=== PATIENT | female | born 1955 | race Caucasian/White ===

== ENCOUNTER 2017-01-09 17:28 | Emergency (ER) | payer OTHER ==
[2017-01-09 17:41] VITALS: BMI 25.2
[2017-01-09] MEDS ORDERED: CATAPRES TAB 0.2 MG PO ONE (19:14)
--- NOTE | 2017-01-09 19:33 | DR.GENAD ---
HPI - PCP Primary Care Physician: LUISA MOORE - Complaint/Symptoms Chief Complaint Doctors Comments: Patient complains of her blood pressure going up all day and a headache since last night. States she had a headache in the frontal area last night and thought it was her sinus and she took and Glenis D and her headache persisted and she talked with her mother and she told her to take her blood pressure again and it was 145/94 at eleven am and 148/97 at 1 pm and just before coming to the emergency room i was 146/104. She has been having SOB but denies chest pain. She has been having nasal congestion. states she has a strong family history of heart disease and her brother at 60 for a massive heart attack. She denies tobacco or alcohol usage. States she just had a check up August 2016 and her blood pressure was 120/70 and it usually run in that range. She denies blurred vision, nausea, vomiting or recent trauma or problems with her balance. Chief Complaint:: PT STATES HER BP HAS BEEN GOING UP ALL DAY, BUT SHE DOES NOT NORMALLY TAKE ANYTHING FOR HER BP. PT ALSO C/O A HEADACHE. - Nurses notes reviewed Nurses Notes Review: Yes - Source History Provided: Patient - Mode of Arrival Mode of Arrival: Ambulatory - Timing Onset of Chief Complaint: 01/09/17 Came on: Suddenly - Duration Duration: Constant How lon Duration: Days - Location Location: frontal headache - Severity Severity: Moderate - Modifying Factors Worsens:: nothing Improves:: nothing PMH - PMH Past Medical History: Yes Past Medical History: Depression, GERD Past Medical History Comment: FIBROMYALGIA Past Surgical History: Yes Surgical History: Appendectomy, Hysterectomy, Tonsillectomy - Family History History of Family Medical Conditions: Yes Family Medical History: Diabetes Mellitus, Cancer, [place], Hypertension - Social History Alcohol Use: None Do you use any recreational Drugs:: No Lives With: Family Lives Where: Home - infectious screening In the last 2 months have you had wt loss of >10#?: NO Have you had fever, night sweats or hemotysis?: No Have you traveled outside the country in the last 6 months?: No Isolation: Standard ROS - Review of Systems Constitutional: No Symptoms Reported. negative: See HPI, Chills, Diaphoresis, Fever, Malaise, Weakness, Irritable, Fatigue, Loss of Appetite, Other Eyes: No Symptoms Reported. negative: See HPI, Eye Pain, Blurred Vision, Tearing, Discharge, Photophobia, Diplopia, Other ENTM: No Symptoms Reported, Nose Discharge, Nose Congestion. negative: See HPI , Ear Pain, Ear Discharge, Pulling on Ears, Hearing Loss, Nose Pain, Epistaxis, Mouth Pain, Mouth Swelling, Loose Teeth, Drooling, Throat Pain, Throat Swelling , Ear Foreign Body Respiratoy: No Symptoms Reported. negative: See HPI, Productive Cough, Non- Productive Cough, Moist Cough, Dry Cough, Hacking Cough, Barking Cough, Brassy Cough, Orthopnea, Short of Breath, Stridor, Wheezing, Hemoptysis, Other Cardiovascular: No Symptoms Reported. negative: See HPI, Chest Pain, Edema, Palpitations, Syncope, Cyanosis, Skin Mottling, Other Gastrointestinal/Abdominal: No Symptoms Reported. negative: See HPI, Abdominal Pain, Constipation, Diarrhea, Nausea, Vomiting, Food Intolerance, Other Genitourinary: No Symptoms Reported Neurological: No Symptoms Reported, Anxiety, Headache. negative: See HPI, Depressed, Emotional Problems, Numbness, Paresthesia, Pre-existing Deficit, Seizure, Tingling, Tremors, Weakness, Dizziness, Problems Walking, Speech Problem, Other Musculoskeletal: No Symptoms Reported Integumentary: No Symptoms Reported Hematologic/Lymphatic: No Symptoms Reported Endocrine: No Symptoms Reported Psychiatric: Anxiety PE - Vital Signs Vitals: Temperature 97.6 F Pulse Rate [Left Brachial] 86 Pulse Rate 84 Respiratory Rate 20 Blood Pressure [Right Arm] 125/73 Blood Pressure [Left Arm] 186/95 Blood Pressure 160/103 O2 Sat by Pulse Oximetry 94 - General Limitations: No Limitations General Appearance: Alert, In No Apparent Distress - Head Head Exam: Normal Inspection, Atraumatic, Normocephalic - Eyes Eye exam: Normal Appearance, PERRL, EOMI. negative: Scleral Icterus, Conjunctival Injection, Nystagmus, Miosis, Mydrasis, Periorbital Swelling, Periorbital Tenderness, Other - ENT ENT Exam: Normal Exam, Normal Oropharynx, Normal External Ear Exam, TM's Normal Bilaterally External Ear Exam: Normal External Inspection TM/Canal Exam: Bilateral Normal Nose Exam: Normal Nose Exam (nasal congestion) Mouth Exam: Normal Inspection. negative: Drooling, Trismus, Lip Swelling, Tongue Elevation, Tongue Swelling, Laceration, Other Throat Exam: Normal Inspection. negative: Tonsillar Erythema, Tonsillomegaly, Tonsillar Exudate, R Peritonsillar Mass, L Peritonsillar Mass, Muffled Voice, Other - Neck Neck Exam: Normal Inspection, Full ROM, Trachea Midline. negative: Tenderness, Meningismus, Lymphadenopathy, Thyromegaly, Other - Chest Chest Inspection: Normal Inspection, Symmetric Chest Wall Rise - Respiratory Respiratory Exam: Normal Lung Sounds Bilat Respiratory Exam: Bilateral Clear to Auscultation - Cardiovascular Cardiovascular Exam: Regular Rate, Normal Rhythm, Normal Heart Sounds - Abdominal Exam Abdominal Exam: Normal Inspection, Normal Bowel Sounds, Soft Abdominal Tenderness: negative: RUQ, RLQ, LUQ, LLQ, Epigastrium, Suprapubic, Diffuse, Mild, Moderate, Severe, Other - Extremities Extremities Exam: Normal Inspection, Full ROM, Normal Capillary Refill. negative: Tenderness, Edema, Joint Swelling, Calf Tenderness, Other - Back Back Exam: Normal Inspection, Full ROM. negative: Tenderness, (R) CVA Tenderness, (L) CVA Tenderness, Muscle Spasm, Paraspinal Tenderness, Vertebral Tenderness, Rashes, (R) Sciatic Notch Tenderness, (L) Sciatic Notch Tendern, (R ) Straight Leg Raise, (L) Straight Leg Raise, Other - Neurologic Neurological Exam: Alert, Oriented X3, CN II-XII Intact, Normal Gait, Reflexes Normal - Psychiatric Psychiatric Exam: Normal Affect, Normal Mood - Skin Skin Exam: Warm, Dry, Intact, Normal Color ROR - Labs Reviewed Laboratory Results Reviewed?: Yes (all labs and x-ray results reviewed and discussed with patient and family) Result Diagrams: 01/09/17 19:28 01/09/17 19:28 Laboratory: WBC 7.8 X10^3/uL (3.6-10.0) 01/09/17 19:28 RBC 4.75 X10^6/uL (3.5-5.4) 01/09/17 19:28 Hgb 13.5 g/dL (12.0-16.0) 01/09/17 19:28 Hct 39.8 % (36.0-47.0) 01/09/17 19:28 MCV 83.7 fL (80.0-100.0) 01/09/17 19:28 MCH 28.3 pg (27.0-34.0) 01/09/17 19:28 MCHC 33.9 g/dL (33.0-35.0) 01/09/17 19: RDW 14.3 % (11.6-16.5) 01/09/17 19:28 Plt Count 303 X10^3/uL (150.0-450.0) 01/09/17 19:28 MPV 7.6 fL (7.4-11.0) 01/09/17 19: Neut % 59.9 % (42.0-75.0) 01/09/17 19: Lymph % 29.4 % (21.0-51.0) 01/09/17 19:28 [place] % 7.4 % (0.0-13.0) 01/09/17 19: Eos % 2.3 % (0.9-2.9) 01/09/17 19:28 Baso % 1.0 % (0.2-1.0) 01/09/17 19:28 Neut # 4.6 x10^3/uL (2.2-4.8) 01/09/17 19:28 Lymph # 2.3 X10^3/uL (1.3-2.9) 01/09/17 19:28 [place] # 0.6 x10^3/uL (0.3-0.8) 01/09/17 19:28 Eos # 0.2 x10^3/uL (0.0-0.2) 01/09/17 19:28 Baso # 0.1 X10^3/uL (0.0-0.1) 01/09/17 19:28 Absolute Nucleated RBC 0.0 /100WBC 01/09/17 19:28 INR Target Range - 01/09/17 19:28 INR 0.96 (0.8-1.3) 01/09/17 19:28 PTT 27.5 SECONDS (22.9-36.5) 01/09/17 19:28 PTT Comment - 01/09/17 19:28 Sodium 141 mmol/L (136-145) 01/09/17 19:28 Corrected Sodium TNP 01/09/17 19:28 Potassium 4.0 mmol/L (3.5-5.1) 01/09/17 19:28 Chloride 105 mmol/L (98-107) 10/14/17 19:28 Carbon Dioxide 28.6 mmol/L (21-32) 01/09/17 19:28 BUN 8 mg/dL (7-18) 01/09/17 19:28 Creatinine 0.87 mg/dL (0.55-1.02) 01/09/17 19:28 Est GFR (MDRD) Af Amer > 60 (>60) 01/09/17 19:28 Est GFR (MDRD) Non-Af > 60 (>60) 01/09/17 19:28 Glucose 83 mg/dL (65-99) 01/09/17 19:28 Calcium 9.2 mg/dL (8.5-10.1) 01/09/17 19:28 Corrected Calcium TNP 01/09/17 19:28 Magnesium 2.0 mg/dL (1.7-2.9) 01/09/17 19:28 Total Bilirubin 0.20 mg/dL (0.2-1.0) 01/09/17 19:28 AST 17 Units/L (15-37) 01/09/17 19:28 ALT 27 Units/L (12-78) 01/09/17 19:28 Alkaline Phosphatase 57 Units/L (46-116) 01/09/17 19:28 Creatine Kinase 98 Units/L (26-192) 01/09/17 19:28 CK-MB (CK-2) < 1.0 ng/mL (0-4.0) 01/09/17 19:28 CK/CKMB % Calc 1.0 % (<4) 01/09/17 19:28 Troponin I < 0.02 ng/mL (0-1.5) 01/09/17 19:28 Total Protein 7.9 g/dL (6.4-8.2) 01/09/17 19:28 Albumin 4.0 g/dL (3.4-5.0) 01/09/17 19:28 Globulin 3.9 g/dL (2.5-4.5) 01/09/17 19:28 Albumin/Globulin Ratio 1.0 Ratio (1.1-2.1) L 01/09/17 19:28 - XRAY XRAY Interpreted by: Radiologist (CXR: No acute cardioulmonary disease) - EKG Rate: 70 [place]: Normal Rhythm: NSR Block: None Hypertrophy: None ST: Normal, Nonsp - Diagnosis Discharge Problem: Essential hypertension, Chronic sinusitis - Discharge Plan Disposition: HOME, SELF-CARE Condition: Stable Prescriptions: Losartan Potassium & Hydrochlo [HYZAAR 50/12.5 MG *] 1 tab PO QAM #30 tab - Follow ups/Referrals Follow ups/Referrals: LUISA MOORE [Primary Care Provider] - 3 days - Instructions Instructions: Hypertension, [id number], DASH Eating Plan, Sinusitis, Adult, [id number]
[2017-01-09 19:36] LABS: BASOPHILS # (AUTO) 0.1 X10^3/uL (0.0-0.1); EOSINOPHILS # (AUTO) 0.2 x10^3/uL (0.0-0.2); EOSINOPHILS % (AUTO) 2.3 % (0.9-2.9); HEMATOCRIT 39.8 % (36.0-47.0); HEMOGLOBIN 13.5 g/dL (12.0-16.0); LYMPHOCYTES # (AUTO) 2.3 X10^3/uL (1.3-2.9); LYMPHOCYTES % (AUTO) 29.4 % (21.0-51.0); MEAN CORPUSCULAR HEMOGLOBIN 28.3 pg (27.0-34.0); MEAN CORPUSCULAR HGB CONC 33.9 g/dL (33.0-35.0); MEAN CORPUSCULAR VOLUME 83.7 fL (80.0-100.0); MEAN PLATELET VOLUME 7.6 fL (7.4-11.0); MONOCYTES # (AUTO) 0.6 x10^3/uL (0.3-0.8); MONOCYTES % (AUTO) 7.4 % (0.0-13.0); NEUTROPHILS # (AUTO) 4.6 x10^3/uL (2.2-4.8); NEUTROPHILS % (AUTO) 59.9 % (42.0-75.0); PLATELET COUNT 303 X10^3/uL (150.0-450.0); RED BLOOD COUNT 4.75 X10^6/uL (3.5-5.4); RED CELL DISTRIBUTION WIDTH 14.3 % (11.6-16.5); WHITE BLOOD COUNT 7.8 X10^3/uL (3.6-10.0)
[2017-01-09] MEDS ORDERED: CATAPRES TAB 0.2 MG ONE (19:41)
[2017-01-09 19:52] LABS: BLOOD UREA NITROGEN 8 mg/dL (7-18); CALCIUM 9.2 mg/dL (8.5-10.1); CARBON DIOXIDE 28.6 mmol/L (21-32); CHLORIDE 105 mmol/L (98-107); CREATININE 0.87 mg/dL (0.55-1.02); SODIUM 141 mmol/L (136-145); TROPONIN I < 0.02 ng/mL (0-1.5); eGFR BLACK RACES > 60 (>60); eGFR NON BLACK RACES > 60 (>60)
--- NOTE | 2017-01-09 19:54 | RAD ---
HISTORY: 61-year-old female with headache and chest pain. Study: Frontal view of the chest. Comparison: Chest radiograph 08/30/2012 Findings: The trachea is midline. The cardiac silhouette is unremarkable. The lungs are clear without focal c onsolidation, effusion or pneumothorax. Soft tissues are unremarkable. Osseous structures are unrema rkable. IMPRESSION: 1. No acute cardiopulmonary disease. Reported By:
[2017-01-09 19:57] LABS: ALANINE AMINOTRANSFERASE 27 Units/L (12-78); ALKALINE PHOSPHATASE 57 Units/L (46-116); ASPARTATE AMINO TRANSFERASE 17 Units/L (15-37); CREATINE KINASE 98 Units/L (26-192); CREATINE KINASE MB < 1.0 ng/mL (0-4.0); TOTAL PROTEIN 7.9 g/dL (6.4-8.2)
[2017-01-09] MEDS ORDERED: HYZAAR 50/12.5 MG ONE (21:32)
[2017-01-09 21:38] VITALS: BP 147/84
== END 2017-01-09 21:45 | disposition home or self-care (01) ==
LOC: ER 17:44
DX: J32.9 Chronic sinusitis, unspecified (principal); I10 Essential (primary) hypertension
CPT/HCPCS: 36415; 71010; 80053; 82550; 82553; 83735; 84484; 85025; 85610; 85730; 93005; 93010; 99282; 99283

== ENCOUNTER 2017-08-16 17:43 | Emergency (ER) | payer OTHER ==
[2017-08-16 17:48] VITALS: BP 175/87; BMI 25.0
[2017-08-16] MEDS ORDERED: XYLOCAINE 1% and EPINEPHRINE 1:100,000 ONE (17:52)
[2017-08-16] MEDS ORDERED: ADACEL TDaP IM ONE ×2 (17:53→18:06)
--- NOTE | 2017-08-16 19:32 | DR.GENAD ---
HPI - PCP Primary Care Physician: darell govea - Complaint/Symptoms Chief Complaint Doctors Comments: History as stated. Chief Complaint:: patient stated she was cutting squash with a vegatable slicer and cut her right 5th digit - Source History Provided: Patient - Mode of Arrival Mode of Arrival: Ambulatory - Timing Onset of Chief Complaint: 08/16/17 PMH - PMH Past Medical History: Yes Past Medical History: Depression, GERD Past Surgical History: Yes Surgical History: Appendectomy, Hysterectomy, Tonsillectomy - Family History History of Family Medical Conditions: Yes Family Medical History: Diabetes Mellitus, Cancer, [place], Hypertension - Social History Does patient currently use any type of tobacco product: No Have you used tobacco products in the last 12 months: No Type of Tobacco Use: None Does any household member use tobacco: No Alcohol Use: None Do you use any recreational Drugs:: No Lives With: Family Lives Where: Home - infectious screening In the last 2 months have you had wt loss of >10#?: NO Have you had fever, night sweats or hemotysis?: No Have you traveled outside the country in the last 6 months?: No Isolation: Standard ROS - Review of Systems Eyes: No Symptoms Reported ENTM: No Symptoms Reported Respiratoy: No Symptoms Reported Cardiovascular: No Symptoms Reported Gastrointestinal/Abdominal: No Symptoms Reported Genitourinary: No Symptoms Reported Neurological: No Symptoms Reported Musculoskeletal: No Symptoms Reported Integumentary: No Symptoms Reported Hematologic/Lymphatic: No Symptoms Reported Endocrine: No Symptoms Reported Psychiatric: No Symptoms Reported PE - Vital Signs Vitals: Temperature 98.9 F Pulse Rate 73 Respiratory Rate 18 Blood Pressure [Right Arm] 125/73 Blood Pressure [Left Arm] 147/84 Blood Pressure 175/87 - General Limitations: No Limitations General Appearance: Alert, In No Apparent Distress - Head Head Exam: Normal Inspection, Atraumatic - Eyes Eye exam: Normal Appearance, PERRL, EOMI - ENT ENT Exam: Normal Exam External Ear Exam: Normal External Inspection TM/Canal Exam: Bilateral Normal Nose Exam: Normal Nose Exam Mouth Exam: Normal Inspection Throat Exam: Normal Inspection - Neck Neck Exam: Normal Inspection - Chest Chest Inspection: Normal Inspection - Respiratory Respiratory Exam: Normal Lung Sounds Bilat Respiratory Exam: Bilateral Clear to Auscultation - Cardiovascular Cardiovascular Exam: Regular Rate, Normal Rhythm - Abdominal Exam Abdominal Exam: Normal Inspection, Normal Bowel Sounds Abdominal Tenderness: negative: RUQ, RLQ, LUQ, LLQ, Epigastrium, Suprapubic, Diffuse, Mild, Moderate, Severe, Other - Extremities Extremities Exam: Normal Inspection, Full ROM - Back Back Exam: Normal Inspection, Full ROM - Neurologic Neurological Exam: Alert, Oriented X3, CN II-XII Intact - Psychiatric Psychiatric Exam: Normal Affect, Normal Mood - Skin Skin Exam: Warm, Dry, Other (tip of 5th digit right hand skin laceration of finger tip) Course - Treatment Treatment: Pressure applied, silver nitrate, glue - Diagnosis Discharge Problem: finger tip laceration - Discharge Plan Condition: Stable - Follow ups/Referrals Follow ups/Referrals: DARELL GOVEA [Primary Care Provider] - 3 days - Instructions
== END 2017-08-16 19:45 | disposition home or self-care (01) | DRG 605 ==
LOC: ER 17:50
PROC: 0HQFXZZ Repair Right Hand Skin, External Approach (ICD-10-PCS; principal; 2017-08-16)
DX: S61.216A Laceration without foreign body of right little finger without damage to nail, initial encounter (principal); W26.8XXA Contact with other sharp object(s), not elsewhere classified, initial encounter; Y93.G1 Activity, food preparation and clean up; Y92.89 Other specified places as the place of occurrence of the external cause
CPT/HCPCS: 12001; 90471; 99282; 99283; J2001